=== PATIENT | female | born 1985 | race Two or more races ===

== ENCOUNTER → 2025-01-05 | Day surgery (SDC) | payer MEDICAID ==
[2025-01-01 09:55] LABS: Hematocrit 38.1 % (36.0-46.0); Hemoglobin 13.3 g/dL (12.2-16.2); Mean Corpuscular Hemoglobin 32.8 pg (28.0-32.0); Mean Corpuscular Volume 93.9 fL (80.0-100.0); Nucleated Red Blood Cells % 0.0 %
[2025-01-01 10:00] LABS: Urine Protein, UAD Negative (Negative)
[2025-01-01 10:43] LABS: Alanine Aminotransferase 34 U/L (7-40); Albumin 4.2 g/dL (3.2-4.8); Anion Gap 6 (5-15); BUN/Creatinine Ratio 18.1 (10.0-20.0); Bilirubin, Total 0.5 mg/dL (0.2-1.0); Blood Urea Nitrogen 13 mg/dL (9-23); Calcium 9.0 mg/dL (8.7-10.4); Carbon Dioxide 29 mmol/L (20-31); Chloride 106 mmol/L (98-107); Glucose 85 mg/dL (74-106); Potassium 4.1 mmol/L (3.5-5.1); Sodium 141 mmol/L (136-145); Total Protein 6.6 g/dL (5.7-8.2)
[2025-01-01 10:49] LABS: Alkaline Phosphatase 44 U/L (46-116)
[2025-01-01 12:52] LABS: INR 1.01 (0.9-1.15); Partial Thromboplastin Time 26.8 SEC (24.5-34.5); Prothrombin Time 10.7 sec (9.3-11.8)
[~2025-01-05] VITALS: Ht 160 cm; Wt 61.2 kg
[~2025-01-05] MED LIST: HYDROmorphone HCL 2 MG/ML VL/or syr IV PRN; MIDAZOLAM HCL 2MG/2ML 2ml VIAL (1mg/ml) IV PRN; MIDAZOLAM HCL 2MG/2ML 2ml VIAL (1mg/ml) ONE; MORPHINE SULFATE 4 MG/ML SYR/VIAL IV PRN; PROPOFOL 10 MG/ML 20 ML IV ONE; fentaNYL CITRATE 100 MCG/2 ML VL ONE; hydrALAZINE HCL 20 MG/ML VL IV PRN
[2025-01-05] MEDS: ceFAZolin 1GM/50ML 100 ML IV ONE (11:47)
[2025-01-05] MEDS: BUPIVACAINE 0.5% P/F INJ 10 ML VIAL ONE (12:57)
[2025-01-05] MEDS: LIDOCAINE 1% HCL (LOCAL ANESTH.) INJ 20ML MDV ONE (13:40)
--- NOTE | 2025-01-05 14:14 | DVHOP2 ---
Operative Report - 2 Report Details Date: 01/05/25 Preop Diagnosis: 1. Right foot accessory navicular 2. Right foot PT tendonitis 3. Right foot pain Postop Diagnosis: Same as preop Surgeon: Trini Iqbal MD Anesthesiologist: See anesthesia Anesthesia: Mac Implant: Arthrex FiberTak Consent: The patient was informed of the risks and benefits of the procedure. These include but are not limited to complications of anesthesia, postoperative infection, incomplete relief of symptoms, recurrence of symptoms, damage to blood vessels, nerves and tendons, deep venous thrombosis, pulmonary embolism and possible need for repeat surgery in the future. Complications: None Estimated Blood Loss: Minimal Fluids: See anesthesia Findings: Consistent with diagnosis Indications for Surgery: Right foot pain Name of Procedure Performed 1. Right foot accessory navicular excision (92122) 2. Right PT tendon advancement (09132) Procedure Details Procedure Details: PRE-PROCEDURE INFORMATION: In the pre-op holding area, the extremity to be oper ated on was clearly marked and the patient verified correct laterality of the marking. The patient was transferred to the OR table and placed in a supine position. A timeout was performed in which identification of the correct patient, procedure, location, and materials was done. The right foot and leg were prepped and draped in normal sterile fashion. The foot and leg were exsangu inated and the thigh tourniquet was inflated to 250 mmHg. DESCRIPTION OF PROCEDURE: Attention was directed to the right medial ankle where a curvilinear incision was made to gain access to the navicular bone and PT tendon. Incision was deepened through blunt and sharp dissection into the navicular bone and PT tendon were visualized. Care was taken throughout the dissection to avoid any neurovascular tendinous structures damage. The PT tendon was then reflected dorsally to plantarly on the accessory navicular. Using a sagittal saw and rasp, the accessory navicular bone was removed in its entirety. Utilizing a Arthrex suture anchor, the PT tendon was then advanced and secured to the navicular bone. The suture was then used to strengthen and repair the weekend tendon. All surgical wounds were then irrigated with copious amounts of saline, and closed with 2-0 Vicryl and 4-0 nylon. A dry sterile dressing was placed on the extremity. The patient was placed in a cam boot. POSTOPERATIVE INFORMATION: The patient tolerated the above noted procedure and anesthesia well and was transferred to the PACU with vital signs stable, and vascular status intact with capillary refill intact to all digits. Postoperative instructions reviewed in detail with the patient with written instructions provided. Patient will return to clinic in approximately 10-14 days for first postoperative visit. Patient has the number of the clinic and was instructed to call prior to that time should any problems, questions, or concerns arise. Condition Good Disposition Home Visit Coding Podiatry Date of Service if different f: Jan 05, 2025 Billing Provider: TRINI IQBAL DPM Podiatry Common Visit Codes: PROCEDURE ONLY TRINI IQBAL DPM Jan 05, 2025 14:14
[2025-01-05 14:20] VITALS: PULSE 112; RESP 16; TEMP 97; O2SAT 100
[2025-01-05] MEDS: OXYCODONE W/ ACETAMINOPHEN 5/325MG TABLET PO ONE (15:21)
[2025-01-05] MEDS: ONDANSETRON HCL 4 MG/2 ML VIAL IV ONE (15:22)
[2025-01-05 15:35] VITALS: BP 117/67; PULSE 67; RESP 12; O2SAT 99
== END | disposition home or self-care (01) ==
LOC: SUR 11:12
PROVIDERS: ATTEND Podiatrist
DX: Q74.2 Other congenital malformations of lower limb(s), including pelvic girdle (principal); M79.671 Pain in right foot
CPT/HCPCS: 28200; 28238; 36415; 80053; 81001; 84702; 85025; 85610; 85730; J0690; J1100; J2003; J2250; J2405; J2704; J3010; J3490